=== PATIENT | female | born 1935 | race Caucasian/White ===

== ENCOUNTER 2019-09-07 15:22 | Emergency (ER) | payer OTHER ==
[~2019-09-07] VITALS: Ht 154.9 cm; Wt 59.0 kg
[2019-09-07] MEDS ORDERED: SYNTHROID88 MCG (15:41)
[2019-09-07] MEDS ORDERED: NORVASC5 MG (15:42)
[2019-09-07] MEDS ORDERED: CHILDREN'S ASPI81 MG (15:42)
[2019-09-07] MEDS ORDERED: AVAPRO75 MG (15:43)
== END 2019-09-07 19:53 | disposition home or self-care (01) ==
LOC: ER 15:22
DX: K58.8 Other irritable bowel syndrome (principal)